=== PATIENT | female | born 1935 | race Two or more races ===

== ENCOUNTER 2019-10-24 11:31 | Emergency (ER) | payer MEDICARE, OTHER ==
[~2019-10-24] VITALS: Ht 167.6 cm; Wt 70.0 kg
--- NOTE | 2019-10-24 11:53 | PHYS DOC ---
Past Medical History Past Medical History: Unknown Past Surgical History: Other Additional Past Surgical Histo: UNKNOWN Smoking Status: Never Smoker Alcohol Use: None General Adult EDM: Chief Complaint: ALTERED MENTAL STATUS HPI: HPI: Patient is a 84 year old female who was brought here by EMS from home due to left-sided weakness, altered mental status, left-sided facial droop. Patient lives with her son, last known normal was at 7:50 AM. Her son found her at 9:39 AM with confusion, left-sided facial droop, left-sided weakness. He called EMS at 10 AM, somehow patient was not brought here until 11:31 AM. Review of Systems: Review of Systems: Constitutional: Denies fever or chills. [] Eyes: Denies change in visual acuity. [] HENT: Denies nasal congestion or sore throat. [] Respiratory: Denies cough or shortness of breath. [] Cardiovascular: Denies chest pain or edema. [] GI: Denies abdominal pain, nausea, vomiting, bloody stools or diarrhea. [] : Denies dysuria. [] Musculoskeletal: Denies back pain or joint pain. [] Integument: Denies rash. [] Neurologic: Denies headache, positive for focal weakness or sensory changes and slurred speech, confusion. Endocrine: Denies polyuria or polydipsia. [] Lymphatic: Denies swollen glands. [] Psychiatric: Denies depression or anxiety. [] Heart Score: Risk Factors: Risk Factors: DM, Current or recent (<one month) smoker, HTN, HLP, family history of CAD, obesity. Risk Scores: Score 0 - 3: 2.5% MACE over next 6 weeks - Discharge Home Score 4 - 6: 20.3% MACE over next 6 weeks - Admit for Clinical Observation Score 7 - 10: 72.7% MACE over next 6 weeks - Early Invasive Strategies Current Medications: Current Medications Medications (Trade) Dose Ordered Sig/Ana Route PRN Reason Start Time Stop Time Status Last Admin Dose Admin Hydralazine HCl (Apresoline Inj) 10 mg 1X ONCE IVP 10/24/19 12:00 10/24/19 12:01 DC 10/24/19 12:10 Iohexol (Omnipaque 300 Mg/ml) 75 ml 1X ONCE IV 10/24/19 12:30 10/24/19 12:31 DC 10/24/19 12:22 Info (CONTRAST GIVEN -- Rx MONITORING) 1 each PRN DAILY PRN MC SEE COMMENTS 10/24/19 12:30 10/24/19 13:53 DC Hydralazine HCl (Apresoline Inj) 10 mg 1X ONCE IVP 10/24/19 13:30 10/24/19 13:31 DC 10/24/19 13:31 Physical Exam: PE: Constitutional: Well developed, well nourished, mild acute distress. HENT: Normocephalic, atraumatic, bilateral external ears normal, oropharynx moist, no oral exudates, nose normal. [] Eyes: right eye blind (chronic) Neck: Normal range of motion, no tenderness, supple, no stridor. [] Cardiovascular: sinus bradycardia, regular rhythm, no murmur [] Lungs & Thorax: Bilateral breath sounds clear to auscultation [] Abdomen: Bowel sounds normal, soft, no tenderness, no masses, no pulsatile masses. [] Skin: Warm, dry, no erythema, no rash. [] Back: No tenderness, no CVA tenderness. [] Extremities: No tenderness, no cyanosis, no clubbing, ROM intact, no edema. [] Neurologic: Confusion, slurred speech, obvious left-sided facial droop, no movement on left upper extremity, no movement noted on the left lower extremity. Psychologic: not able to evaluate due condition Current Patient Data: Vital Signs: Vital Signs Date Time Temp Pulse Resp B/P (MAP) Pulse Ox O2 Delivery O2 Flow Rate FiO2 10/24/19 11:31 97.8 66 20 255/97 (149) 98 Room Air 97.8 EKG: EKG: EKG WAS READ AT 1150, HEART RATE OF 54 BPM, SINUS BRADYCARDIA, NO STEMI. [] Radiology/Procedures: Radiology/Procedures: [][facility] [address] [place], [place] [id number] IMAGING REPORT Signed PATIENT: NOLA ABRAMS ACCOUNT: [id number] : 1935 LOCATION: ER AGE: 84 SEX: F EXAM STATUS: PRE ER ORD. PHYSICIAN: SREEKANTH CANSECO DO REASON: AMS, LEFT SIDE WEAKNESS, HYPERTENSION PROCEDURE: CT CODE STROKE HEAD WO CT CODE STROKE HEAD WO History: Reason: AMS, LEFT SIDE WEAKNESS, HYPERTENSION / Spl. Instructions: / History: Comparison: None. Technique: Noncontrast CT imaging was performed of the head. Exposure: One or more of the following individualized dose reduction techniques were utilized for this examination: 1. Automated exposure control 2. Adjustment of the mA and/or kV according to patient size 3. Use of iterative reconstruction technique. Findings: No intracranial hemorrhage. No mass effect. No hydrocephalus. Chronic appearing right parietal infarct. Multifocal low-attenuation foci in the within the hemispheric white matter bilaterally, right greater than left. Hypoattenuating foci within the right frontal lobe are specifically age indeterminant given history. Right phthisis bulbi. Mild scattered sinus mucosal thickening. Mastoid air cells are clear. TMJ arthropathy. No acute calvarial fracture. Impression: 1. No acute intracranial hemorrhage. 2. Chronic appearing right parietal infarct although technically age indeterminant. Recommend MRI to further evaluate. 3. Additional multifocal white matter hypoattenuating foci, most often due to chronic microvascular ischemia although several regions are age indeterminant. Recommend attention on MRI. FOR INTERNAL CODING PURPOSES Critical result: Findings discussed with SREEKANTH CANSECO at 10/24/2019 11:50 AM. RESULT CODE: (C) Electronically signed by: Luis Capellan DO (10/24/2019 11:55 AM) [id number] DICTATED and SIGNED BY: LUIS CAPELLAN DO DATE: 10/24/19 1155 [facility] [address] [facility] [address] [place], [place] [id number] IMAGING REPORT Signed PATIENT: NOLA ABRAMS ACCOUNT: [id number] : 1935 LOCATION: ER AGE: 84 SEX: F EXAM STATUS: REG ER ORD. PHYSICIAN: SREEKANTH CANSECO DO REASON: LEFT SIDE PARALYSIS, AMS, LEFT SIDE FACIAL DROOP-INJ 75ML OMNI 300 PROCEDURE: CTA HEAD/NECK - CODE STROKE EXAM: CT Angiogram of the Head and Neck INDICATION: Reason: LEFT SIDE PARALYSIS, AMS, LEFT SIDE FACIAL DROOP-INJ 75ML OMNI 300 / Spl. Instructions: / History: TECHNIQUE: CT images were obtained through the head per standard CTA protocol. Multiplanar and 3D reformatted images were generated from the CT dataset on an independent workstation. All CT scans performed at this facility utilize dose optimization techniques as appropriate to the exam, including the following: Automated exposure control and adjustment of the mA and/or KV according to patient size (this includes techniques or standardized protocols for targeted exams where dose is indication/reason for exam). IV CONTRAST: Administered COMPARISON: Noncontrast head CT same day FINDINGS: CTA HEAD: The right ICA is occluded. There is minimal collateral perfusion of the right MCA and robust collateral perfusion of the right ZACH through the anterior communicating artery. Otherwise no high large vessel stenosis, proximal or branch vessel occlusion, aneurysm, or vascular malformation is identified intracranially. ANTERIOR CIRCULATION: The anterior cerebral arteries are widely patent. The right middle cerebral artery is very poorly perfused ANTERIOR COMMUNICATING ARTERY: Patent. POSTERIOR COMMUNICATING ARTERIES: Present on the right, not as well seen on the left POSTERIOR CIRCULATION: Vertebral and basilar arteries are widely patent. Bilateral posterior inferior cerebellar arteries (PICAs), anterior inferior cerebellar arteries (AICAs), and superior cerebellar arteries (SCAs) are visualized and patent. OTHER: There is diffuse abnormal hypoattenuation to the right temporal lobe that appears to represent an acute evolving infarct, showing less hypodensity than the previously reported right parietal lobe infarct. The paranasal sinuses, mastoid air cells, and tympanic cavities are clear. NECK CTA: AORTA: 3 vessel configuration of arch. No aortic dissection or injury. Scattered aortic calcification. No hemodynamically significant great vessel origin stenosis. RIGHT CAROTID: Common carotid artery is intact. The right internal carotid artery has dense calcified plaque at its origin resulting in greater than 70 percent stenosis but there is luminal irregularity in the proximal right ICA associated abnormal wall thickening that leads to the string sign of eventual occlusion of the right cervical internal carotid artery. LEFT CAROTID: Common carotid is intact. The left internal carotid artery shows dense atherosclerotic calcifications that result in less than 50 percent stenosis. VERTEBRAL ARTERIES: Left dominant. No evidence of dissection or flow limiting stenosis. SUBCLAVIAN ARTERIES:Subclavian arteries are patent without stenosis. SOFT TISSUES: Right phthisis bulbi. Lung apices are clear. Where applicable, evaluation of ICA stenosis was performed using NASCET criteria, where the site of greatest stenosis is compared to the diameter of the ICA distal to the carotid bulb. IMPRESSION: 1. 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 No aneurysm or intracranial vascular malformation identified. 2. Atherosclerotic calcifications of the left proximal cervical internal carotid artery resulting in less than 50 percent stenosis. Report telephoned to the emergency room where nurse Sauceda took the telephone report on behalf of Dr. Canseco at 12:39 PM on 10/24/2019 Electronically signed by: Joann June MD (10/24/2019 12:59 PM) [id number] DICTATED and SIGNED BY: JOANN JUNE MD DATE: 10/24/19 0602 Course & Med Decision Making: Course & Med Decision Making Pertinent Labs and Imaging studies reviewed. (See chart for details) Patient is an 84-year-old female with acute CVA, consult neurology on-call Dr. Zavaleta who evaluated the patient in the ED, recommended no IV TPA due to unknown time of onset of symptom, and her blood pressure was extremely high. Recommended CTA of head and neck. CTs area with head neck show right internal carotid artery occlusion with dissection, Dr. Zavaleta recommend patient to be transferred to [facility] for clot retrieval. Patient is a 84-year-old female with hypertensive urgency, acute CVA, need urgent clot retrieval. Discussed with interventional neurologist at [facility] Dr. Correa who agreed to accept the patient to be transfer there for clot retrieval. Critical care time was [60] minutes which includes time at bedside, spent in discussion of patient's care with specialist and/or family members, with interpretation of laboratory and/or radiological studies and is exclusive of procedures. Dragon Disclaimer: DragSeelio Disclaimer: This electronic medical record was generated, in whole or in part, using a voice recognition dictation system. Departure Departure Impression: Primary Impression: Acute CVA (cerebrovascular accident) Additional Impression: Hypertensive urgency Disposition: 02 TRANSFER [facility] (Transferred to [facility] FOR CLOT RETRIEVAL, ACCEPTED BY DR. CORREA.) Condition: STABLE Justicifation of Admission Dx: Justifications for Admission: Justification of Admission Dx: N/A NIHSS Stroke Scale NIH Stroke Scale: NIH Stroke Scale Response (Comments) Value Level of Consciousness: 2 Requires stimulation 2 LOC Questions: 1 Answers one correctly 1 Best Gaze: 0 Normal 0 Visual: 1 Partial hemianopia 1 Facial Palsy: 2 Partial paralysis 2 Motor - Left Arm 4 No movement 4 Motor - Right Arm 0 No drift 0 Motor - Left Leg 4 No movement 4 Motor: Right Leg 0 No drift 0 Limb Ataxia: 2 Two limbs 2 Best Language: 1 Mild to mod aphasia 1 Dysathria: 1 Mild to moderate 1 Extinction and Inattention: 1 One sensory modality 1 Total 19 SREEKANTH CANSECO DO Oct 24, 2019 11:53
--- NOTE | 2019-10-24 11:57 | RAD ---
CT CODE STROKE HEAD WO History: Reason: AMS, LEFT SIDE WEAKNESS, HYPERTENSION / Spl. Instructions: / History: Comparison: None. Technique: Noncontrast CT imaging was performed of the head. Exposure: One or more of the following individualized dose reduction techniques were utilized for this examination: 1. Automated exposure control 2. Adjustment of the mA and/or kV according to patient size 3. Use of iterative reconstruction technique. Findings: No intracranial hemorrhage. No mass effect. No hydrocephalus. Chronic appearing right parietal infarct. Multifocal low-attenuation foci in the within the hemispheric white matter bilaterally, right greater than left. Hypoattenuating foci within the right frontal lobe are specifically age indeterminant given history. Right phthisis bulbi. Mild scattered sinus mucosal thickening. Mastoid air cells are clear. TMJ arthropathy. No acute calvarial fracture. Impression: 1. No acute intracranial hemorrhage. 2. Chronic appearing right parietal infarct although technically age indeterminant. Recommend MRI to further evaluate. 3. Additional multifocal white matter hypoattenuating foci, most often due to chronic microvascular ischemia although several regions are age indeterminant. Recommend attention on MRI. FOR INTERNAL CODING PURPOSES Critical result: Findings discussed with SREEKANTH CANSECO at 10/24/2019 11:50 AM. RESULT CODE: (C) Electronically signed by: Luis Humphrey DO (10/24/2019 11:55 AM) [id number]
[2019-10-24] MEDS ORDERED: hydrALAZINE 20 MG/ML VIAL. IVP ONE ×2 (12:00→13:30)
[2019-10-24 12:13] LABS: PROTHROMBIN TIME PATIENT 12.1 SEC (11.7-14.0)
[2019-10-24 12:19] LABS: BASO # 0.1 x10^3/uL (0.0-0.2); BASO % 1 % (0-3); EOS # 0.2 x10^3/uL (0.0-0.7); EOS % 3 % (0-3); HEMATOCRIT 44.3 % (36.0-47.0); HEMOGLOBIN 15.3 g/dL (12.0-15.5); LYMPH # 1.6 x10^3/uL (1.0-4.8); LYMPH % 25 % (24-48); MEAN CORPUSCULAR HEMOGLOBIN 32 pg (25-35); MEAN CORPUSCULAR HGB CONC 35 g/dL (31-37); MEAN CORPUSCULAR VOLUME 94 fL (79-100); MONO # 0.4 x10^3/uL (0.0-1.1); MONO % 7 % (0-9); NEUT # 4.1 x10^3/uL (1.8-7.7); NEUT % 64 % (31-73); PLATELET COUNT 238 x10^3/uL (140-400); RED BLOOD COUNT 4.71 x10^6/uL (3.50-5.40); RED CELL DISTRIBUTION WIDTH 13.2 % (11.5-14.5); WHITE BLOOD COUNT 6.5 x10^3/uL (4.0-11.0)
[2019-10-24] MEDS ORDERED: IOHEXOL 300 MG/ML 100ML VIAL. IV ONE (12:30)
[2019-10-24] MEDS ORDERED: CONTRAST GIVEN. MC PRN (12:30)
--- NOTE | 2019-10-24 13:02 | RAD ---
EXAM: CT Angiogram of the Head and Neck INDICATION: Reason: LEFT SIDE PARALYSIS, AMS, LEFT SIDE FACIAL DROOP-INJ 75ML OMNI 300 / Spl. Instructions: / History: TECHNIQUE: CT images were obtained through the head per standard CTA protocol. Multiplanar and 3D reformatted images were generated from the CT dataset on an independent workstation. All CT scans performed at this facility utilize dose optimization techniques as appropriate to the exam, including the following: Automated exposure control and adjustment of the mA and/or KV according to patient size (this includes techniques or standardized protocols for targeted exams where dose is indication/reason for exam). IV CONTRAST: Administered COMPARISON: Noncontrast head CT same day FINDINGS: CTA HEAD: The right ICA is occluded. There is minimal collateral perfusion of the right MCA and robust collateral perfusion of the right ZACH through the anterior communicating artery. Otherwise no high large vessel stenosis, proximal or branch vessel occlusion, aneurysm, or vascular malformation is identified intracranially. ANTERIOR CIRCULATION: The anterior cerebral arteries are widely patent. The right middle cerebral artery is very poorly perfused ANTERIOR COMMUNICATING ARTERY: Patent. POSTERIOR COMMUNICATING ARTERIES: Present on the right, not as well seen on the left POSTERIOR CIRCULATION: Vertebral and basilar arteries are widely patent. Bilateral posterior inferior cerebellar arteries (PICAs), anterior inferior cerebellar arteries (AICAs), and superior cerebellar arteries (SCAs) are visualized and patent. OTHER: There is diffuse abnormal hypoattenuation to the right temporal lobe that appears to represent an acute evolving infarct, showing less hypodensity than the previously reported right parietal lobe infarct. The paranasal sinuses, mastoid air cells, and tympanic cavities are clear. NECK CTA: AORTA: 3 vessel configuration of arch. No aortic dissection or injury. Scattered aortic calcification. No hemodynamically significant great vessel origin stenosis. RIGHT CAROTID: Common carotid artery is intact. The right internal carotid artery has dense calcified plaque at its origin resulting in greater than 70 percent stenosis but there is luminal irregularity in the proximal right ICA associated abnormal wall thickening that leads to the string sign of eventual occlusion of the right cervical internal carotid artery. LEFT CAROTID: Common carotid is intact. The left internal carotid artery shows dense atherosclerotic calcifications that result in less than 50 percent stenosis. VERTEBRAL ARTERIES: Left dominant. No evidence of dissection or flow limiting stenosis. SUBCLAVIAN ARTERIES:Subclavian arteries are patent without stenosis. SOFT TISSUES: Right phthisis bulbi. Lung apices are clear. Where applicable, evaluation of ICA stenosis was performed using NASCET criteria, where the site of greatest stenosis is compared to the diameter of the ICA distal to the carotid bulb. IMPRESSION: 1. 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 No aneurysm or intracranial vascular malformation identified. 2. Atherosclerotic calcifications of the left proximal cervical internal carotid artery resulting in less than 50 percent stenosis. Report telephoned to the emergency room where nurse Sauceda took the telephone report on behalf of Dr. Putnam at 12:39 PM on 10/24/2019 Electronically signed by: Kyara June MD (10/24/2019 12:59 PM) [id number]
[2019-10-24 13:06] LABS: CALCIUM 8.4 mg/dL (8.5-10.1); GFR 52.7; POTASSIUM 3.6 mmol/L (3.5-5.1)
--- NOTE | 2019-10-24 13:08 | PDOC2 ---
NEUROLOGY CONSULT Date of Admission Date of Admission DATE: 10/24/19 TIME: 13:00 Reason for Consult Reason for Consult: Stroke Referring Physician Referring Physician: Dr. Putnam Source Source: Caregiver (Granddaughter), Chart review History of Present Illness History of Present Illness The patient is an 84-year-old right-handed female last known normal at about 7:58 AM when the granddaughter called to talk to her father, the patient's son. At about 10 AM the son called the granddaughter to say that there was a change and he was calling the ambulance. Patient has been found to have evidence of a large right hemispheric stroke. Patient lives with her son and he is the main caregiver. There is a daughter who is power of collections attorney but the granddaughter says they "washed their hands of her" about 3 years ago. They have not allowed patient to visit any doctors so the patient has been off all medications for up to 3 years. The patient has a diagnosis of hypertension and dementia. There is no history of prior stroke, seizure, or head injury. Past Medical History Cardiovascular: HTN Pulmonary: Asthma (?, She was on an inhaler in the past) Past Surgical History Past Surgical History: No pertinent history Family History Family History: No pertinent hx (No history of stroke in the family) Social History Social History , son lives with her, apparently the power of collections attorney is estranged. No tobacco or alcohol. Current Medications Current Medications Current Medications Hydralazine HCl (Apresoline Inj) 10 mg 1X ONCE IVP Last administered on 10/24/19at 12:10; Start 10/24/19 at 12:00; Stop 10/24/19 at 12:01; Status DC Iohexol (Omnipaque 300 Mg/ml) 75 ml 1X ONCE IV Last administered on 10/24/19at 12:22; Start 10/24/19 at 12:30; Stop 10/24/19 at 12:31; Status DC Info (CONTRAST GIVEN -- Rx MONITORING) 1 each PRN DAILY PRN MC SEE COMMENTS; Start 10/24/19 at 12:30; Stop 10/26/19 at 12:29 Allergies Allergies: Coded Allergies: No Known Drug Allergies (Unverified , 10/24/19) ROS Review of System Negative for fever, chills, weight loss, shortness of breath, chest pain, indigestion, hematochezia, melena, and dysuria. Full 14-point review of systems is negative. Physical Exam Physical Examination General: Well-developed, well-nourished female in no acute distress HEENT: Normocephalic andatraumatic. Temporal arteriespulsatile and nontender. Neck: Supple without bruit, no meningismus Musculoskeletal: Stability:see neurologic. Gait exam:see neurologic. Tone:see neurologic.Strength:see neurologic. Neurological: Mental Status:orientation, memory, attention span/concentration, language, fund of knowledge: She follows a few commands. There is left neglect. Cranial Nerves:Left pupil reactive to light, right corneal clouding, tendency for right gaze preference, left field cut,. Facial sensation is normal. There is a left central facial weakness. All other cranial related problems are negative except as mentioned before.Reflexes:2+ and symmetric with extensor plantar response on the left, flexor on the right. Motor:Left hemiparesis and motor neglect. Coordination and gait:Not cooperative. Sensory:Left sensory loss/neglect Vitals VITALS Vital Signs Date Time Temp Pulse Resp B/P (MAP) Pulse Ox O2 Delivery O2 Flow Rate FiO2 10/24/19 12:10 52 255/94 10/24/19 11:51 20 96 10/24/19 11:31 97.8 Room Air 97.8 Labs Labs Laboratory Tests Test 10/24/19 11:47 White Blood Count 6.5 x10^3/uL (4.0-11.0) Red Blood Count 4.71 x10^6/uL (3.50-5.40) Hemoglobin 15.3 g/dL (12.0-15.5) Hematocrit 44.3 % (36.0-47.0) Mean Corpuscular Volume 94 fL (79-100) Mean Corpuscular Hemoglobin 32 pg (25-35) Mean Corpuscular Hemoglobin Concent 35 g/dL (31-37) Red Cell Distribution Width 13.2 % (11.5-14.5) Platelet Count 238 x10^3/uL (140-400) Neutrophils (%) (Auto) 64 % (31-73) Lymphocytes (%) (Auto) 25 % (24-48) Monocytes (%) (Auto) 7 % (0-9) Eosinophils (%) (Auto) 3 % (0-3) Basophils (%) (Auto) 1 % (0-3) Neutrophils # (Auto) 4.1 x10^3/uL (1.8-7.7) Lymphocytes # (Auto) 1.6 x10^3/uL (1.0-4.8) Monocytes # (Auto) 0.4 x10^3/uL (0.0-1.1) Eosinophils # (Auto) 0.2 x10^3/uL (0.0-0.7) Basophils # (Auto) 0.1 x10^3/uL (0.0-0.2) Prothrombin Time 12.1 SEC (11.7-14.0) Prothromb Time International Ratio 0.9 (0.8-1.1) Activated Partial Thromboplast Time 28 SEC (24-38) Laboratory Tests Test 10/24/19 11:47 White Blood Count 6.5 x10^3/uL (4.0-11.0) Red Blood Count 4.71 x10^6/uL (3.50-5.40) Hemoglobin 15.3 g/dL (12.0-15.5) Hematocrit 44.3 % (36.0-47.0) Mean Corpuscular Volume 94 fL (79-100) Mean Corpuscular Hemoglobin 32 pg (25-35) Mean Corpuscular Hemoglobin Concent 35 g/dL (31-37) Red Cell Distribution Width 13.2 % (11.5-14.5) Platelet Count 238 x10^3/uL (140-400) Neutrophils (%) (Auto) 64 % (31-73) Lymphocytes (%) (Auto) 25 % (24-48) Monocytes (%) (Auto) 7 % (0-9) Eosinophils (%) (Auto) 3 % (0-3) Basophils (%) (Auto) 1 % (0-3) Neutrophils # (Auto) 4.1 x10^3/uL (1.8-7.7) Lymphocytes # (Auto) 1.6 x10^3/uL (1.0-4.8) Monocytes # (Auto) 0.4 x10^3/uL (0.0-1.1) Eosinophils # (Auto) 0.2 x10^3/uL (0.0-0.7) Basophils # (Auto) 0.1 x10^3/uL (0.0-0.2) Prothrombin Time 12.1 SEC (11.7-14.0) Prothromb Time International Ratio 0.9 (0.8-1.1) Activated Partial Thromboplast Time 28 SEC (24-38) Images Images CT angiogram reviewed, there is occlusion of the right internal carotid artery at the skull base CT CODE STROKE HEAD WO History: Reason: AMS, LEFT SIDE WEAKNESS, HYPERTENSION / Spl. Instructions: / History: Comparison: None. Technique: Noncontrast CT imaging was performed of the head. Exposure: One or more of the following individualized dose reduction techniques were utilized for this examination: 1. Automated exposure control 2. Adjustment of the mA and/or kV according to patient size 3. Use of iterative reconstruction technique. Findings: No intracranial hemorrhage. No mass effect. No hydrocephalus. Chronic appearing right parietal infarct. Multifocal low-attenuation foci in the within the hemispheric white matter bilaterally, right greater than left. Hypoattenuating foci within the right frontal lobe are specifically age indeterminant given history. Right phthisis bulbi. Mild scattered sinus mucosal thickening. Mastoid air cells are clear. TMJ arthropathy. No acute calvarial fracture. Impression: 1. No acute intracranial hemorrhage. 2. Chronic appearing right parietal infarct although technically age indeterminant. Recommend MRI to further evaluate. 3. Additional multifocal white matter hypoattenuating foci, most often due to chronic microvascular ischemia although several regions are age indeterminant. Recommend attention on MRI. Assessment/Plan Assessment/Plan Impression: Right hemispheric stroke with right internal carotid artery occlusion. Recommendations: Transfer to for intervention. Outside the window for alteplase. If patient stays here, will proceed with the usual stroke pathway Discussed with patient's granddaughter. Thank you for letting me help with the patient's care. LUZ MARIA AGUILAR MD Oct 24, 2019 13:08
[2019-10-24 13:10] LABS: ALBUMIN 3.2 g/dL (3.4-5.0); ALBUMIN/GLOBULIN RATIO 0.9 (1.0-1.7); MAGNESIUM 2.1 mg/dL (1.8-2.4); TOTAL PROTEIN 6.9 g/dL (6.4-8.2)
[2019-10-24 13:32] VITALS: BP 231/90
--- NOTE | 2019-10-24 14:07 | EKG ---
[facility] [address] [place] [address] Test Date: 2019-10-24 Test Time: 11:49:28 Pat Name: NOLA ABRAMS Department: Room: Gender: F Hoe Runner: : [id number] Requested By: SREEKANTH CANSECO Order Number: [id number] Reading MD: Kip Vargas MD Measurements Intervals [place] Rate: 54 P: 38 WY: 184 QRS: -17 QRSD: 94 T: 0 QT: 456 QTc: 434 Interpretive Statements SINUS RHYTHM Electronically Signed On 11-18-2019 11:32:13 CDT by Kip Vargas MD
== END 2019-10-24 13:52 | disposition short-term general hospital (02) ==
LOC: ER 11:31
DX: I63.9 Cerebral infarction, unspecified (principal); I16.0 Hypertensive urgency; R41.82 Altered mental status, unspecified; R29.810 Facial weakness
CPT/HCPCS: 36415; 70450; 70496; 70498; 80053; 83735; 83880; 84484; 85025; 85610; 85730; 93005; 96374; 96376; 99291; J0360; Q9967